=== PATIENT | male | born 1980 | race Two or more races ===

== ENCOUNTER 2018-12-28 17:02 | Emergency (ER) | payer MEDICAID ==
[~2018-12-28] VITALS: Ht 170.2 cm; Wt 72.6 kg
--- NOTE | 2018-12-28 17:20 | NUR ---
ED Nurse Note: Patient is in room 5. Dr in attendance. CO symptoms for five days - fever. Temp at griage 100.8.
[2018-12-28] MEDS ORDERED: IBUPROFEN600 MG ORAL (17:30)
[2018-12-28 17:53] VITALS: BP 117/71
--- NOTE | 2018-12-28 18:28 | Emergency Room Report ---
History of Present Illness General Chief Complaint: Fever Source: Patient Present Illness HPI 38-year-old male presents ED for evaluation. Complaining of fever for the last 5 days. Febrile in triage. Notes general body aches with cough. Cough is dry. Denies earache or sore throat. Denies sick contacts or recent travel. No other aggravating relieving factors. Denies any other associated symptoms Allergies: Coded Allergies: No Known Allergies (Unverified , 12/28/18) Patient History Past Medical History: none Past Surgical History: none Pertinent Family History: none Social History: Denies: smoking, alcohol use, drug use Immunizations: UTD Reviewed Nursing Documentation: PMH: Agreed; PSxH: Agreed Nursing Documentation-PMH Past Medical History: No Stated History Review of Systems All Other Systems: negative except mentioned in HPI Physical Exam Vital Signs Date Time Temp Pulse Resp B/P (MAP) Pulse Ox O2 Delivery O2 Flow Rate FiO2 12/28/18 17:07 100.8 116 18 131/83 (99) 96 Room Air Sp02 EP Interpretation: reviewed, normal General Appearance: no apparent distress, alert, GCS 15, non-toxic Head: normocephalic, atraumatic Eyes: bilateral eye normal inspection, bilateral eye PERRL ENT: hearing grossly normal, normal pharynx, no angioedema, normal voice Neck: full range of motion, supple/symm/no masses Respiratory: chest non-tender, lungs clear, normal breath sounds, speaking full sentences Cardiovascular #1: regular rate, rhythm, no edema Cardiovascular #2: 2+ carotid (R), 2+ carotid (L), 2+ radial (R), 2+ radial (L) , 2+ dorsalis pedis (R), 2+ dorsalis pedis (L) Gastrointestinal: normal bowel sounds, non tender, soft, non-distended, no guarding, no rebound Rectal: deferred Genitourinary: normal inspection, no CVA tenderness Musculoskeletal: back normal, gait/station normal, normal range of motion, non- tender Neurologic: alert, oriented x3, responsive, motor strength/tone normal, sensory intact, speech normal Psychiatric: judgement/insight normal, memory normal, mood/affect normal, no suicidal/homicidal ideation Reflexes: 3+ bicep (R), 3+ bicep (L), 3+ tricep (R), 3+ tricep (L), 3+ knee (R) , 3+ knee (L) Lymphatic: no adenopathy Medical Decision Making Diagnostic Impression: Primary Impression: Upper respiratory infection Qualified Codes: J06.9 - Acute upper respiratory infection, unspecified ER Course Hospital Course 38year-old male presents to ED complaining of cough, bodyaches and fever Differential diagnoses include: URI, pharyngitis, otitis media, asthma Clinical course Patient placed on stretcher. After initial history, physical exam reveals a male in no acute distress. Bilateral TM unremarkable. No pharyngeal erythema. No tonsillar exudates. No lymphadenopathy. lungs clear. abdomen soft. Clinical findings consistent with URI. I discussed findings with patient. Course is viral and self-limited. Given Motrin in ED. patient appears well and nontoxic-appearing. Safe for discharge for close outpatient follow-up. Does not have a PMD. I will provide referrals Diagnosis - URI Stable and discharged home with Rx Motrin. Instructed to followup with PMD. Return to ED if symptoms recur or worsen Last Vital Signs Date Time Temp Pulse Resp B/P (MAP) Pulse Ox O2 Delivery O2 Flow Rate FiO2 12/28/18 17:54 Room Air 12/28/18 17:53 102.4 104 20 117/71 98 Status: improved Disposition: HOME, SELF-CARE Condition: Stable Scripts Ibuprofen* (MOTRIN*) 600 Mg Tablet 600 MG ORAL Q8H PRN for For Pain, #30 TAB 0 Refills Prov: Reji Mireles MD 12/28/18 Referrals: [facility] Patient Instructions: Upper Respiratory Infection, Adult, [id number] Reji Mireles MD Dec 28, 2018 18:28
== END 2018-12-28 17:58 | disposition home or self-care (01) ==
LOC: EMR 17:37
DX: J06.9 Acute upper respiratory infection, unspecified (principal)
CPT/HCPCS: 99282